=== PATIENT | female | born 1980 | race African-American/Black ===

== ENCOUNTER 2023-11-14 11:35 | Inpatient (IN) | payer BC, MEDICAID ==
[2023-11-14] VITALS (9 sets, daily range): BP systolic 102–148; BP diastolic 65–100; PULSE 97–130; RESP 18–20; TEMP 100.9; O2SAT 96–100
[~2023-11-14] VITALS: Ht 165.1 cm; Wt 76.6 kg
[2023-11-14] MEDS: ETOMIDATE (2MG/ML) 20ML VIAL IV ONE ×2 (11:51→12:05)
[2023-11-14] MEDS: MIDAZOLAM DRIP 50 mg/50mL 50 ML IV ONE (11:57)
[2023-11-14] MEDS: ROCURONIUM 10MG/ML 10ML VIAL IV ONE ×2 (12:03→13:29)
[2023-11-14] MEDS: MIDAZOLAM DRIP 50 mg/50mL 50 ML IV SCH (12:15)
[2023-11-14 13:31] LABS: Basophils # (auto) 0.1 10 ^3/uL (0-0.2); Eosinophils # (auto) 0.1 10 ^3/uL (0-0.8); Lymphocytes # (auto) 2.8 10 ^3/uL (0.4-5.4); Mean Corpuscular Hgb Conc. 35.1 g/dL (32.0-36.0); Monocytes # (auto) 0.4 10 ^3/uL (0-1.3); White Blood Cell 5.6 10^3/uL (4.4-10.8)
[2023-11-14 13:33] LABS: Basophils % (auto) 0.9 % (0.0-2.0); Eosinophils % (auto) 1.7 % (0.0-7.0); Hematocrit 39.7 % (36.0-46.0); Hemoglobin 13.9 g/dL (12.2-16.2); Lymphocytes % (auto) 50.3 % (10.0-50.0); Mean Corpuscular Hemoglobin 34.5 pg (28.0-32.0); Mean Corpuscular Volume 98.4 fL (80.0-100.0); Monocytes % (auto) 7.3 % (0.0-12.0); Neutrophils # (auto) 2.2 10 ^3/uL (1.6-8.6); Neutrophils % (auto) 39.8 % (37.0-80.0); Nucleated Red Blood Cells % 0.2 %; Platelet Count (auto) 288 10^3/uL (140-450); Red Blood Cells 4.04 10^6/uL (4.0-5.20); Red Cell Distribution Width 15.2 % (11.8-14.3)
[2023-11-14 13:40] LABS: Base Excess -4.7 mmol/L (-2.0-3.0)
[2023-11-14 13:41] LABS: Alanine Aminotransferase 55 U/L (7-40); Alkaline Phosphatase 107 U/L (46-116); Anion Gap 10 (5-15); Blood Urea Nitrogen 8 mg/dL (9-23); Calcium 9.9 mg/dL (8.7-10.4); Carbon Dioxide 23 mmol/L (20-30); Chloride 108 mmol/L (98-107); Glucose 85 mg/dL (74-106); Magnesium 1.8 mg/dL (1.6-2.6); Sodium 141 mmol/L (136-145)
[2023-11-14 13:42] LABS: Acetaminophen < 2.0 UG/ML (10.0-20.0); Albumin 4.5 g/dL (3.2-4.8); Aspartate Aminotransferase 81 U/L (13-40); BUN/Creatinine Ratio 12.1 (10.0-20.0); Bilirubin, Total 0.3 mg/dL (0.2-1.0); Total Protein 6.9 g/dL (5.7-8.2)
[2023-11-14 13:43] LABS: Salicylate < 3.0 mg/dL (2.8-20.0)
[2023-11-14 14:09] LABS: Urine Bacteria None Seen /hpf (None Seen)
[2023-11-14 14:29] LABS: Urine Blood Negative /uL (Negative); Urine Clarity Clear (Clear); Urine Protein, UAD Negative (Negative); Urine Specific Gravity 1.005 (1.001-1.035); Urine Urobilinogen Normal (Negative); Urine WBC <1 /hpf (0 - 5)
[2023-11-14 14:31] LABS: Urine Color Straw (Yellow)
[2023-11-14 14:37] LABS: Amphetamine Screen, Urine Neg (NEGATIVE); Benzodiazephine Screen, Urine Neg (NEGATIVE)
[2023-11-14 14:38] LABS: Barbiturate Scree,Urine Neg (NEGATIVE); Cannabinoid Screen, Urine Neg (NEGATIVE); Cocaine Screen, Urine Neg (NEGATIVE); Opiate Scree,Urine Neg (NEGATIVE); Phencyclidine Screen, Urine Neg (NEGATIVE)
[2023-11-14 16:19] LABS: Base Excess -4.3 mmol/L (-2.0-3.0)
[2023-11-14] MEDS ORDERED: NITROGLYCERIN 0.4 MG SL TAB SL PRN (18:15)
[2023-11-14] MEDS ORDERED: MORPHINE SULFATE INJ 2 MG/ml SYRG IV PRN (18:15)
[2023-11-14] MEDS ORDERED: MORPHINE SULFATE 4 MG/ML SYR/VIAL IV PRN (18:15)
[2023-11-14] MEDS: ACETAMINOPHEN 650 mg PER 20.3 mL UD GT ONE (19:06)
[2023-11-14] MEDS: SODIUM CHLORIDE 0.9% 1,000 ML IV SCH (20:06)
[2023-11-14] MEDS: PANTOPRAZOLE 40 MG/10 ML VIAL INJ IV ONE (20:06)
[2023-11-14] MEDS: fentaNYL Drip 2500mCg/250mlNS 250 ML IV SCH (20:22)
[2023-11-14] MEDS: IPRATROPIUM BROM 0.5 MG/2.5ML INH SOL NEB SCH (22:00)
[2023-11-14] MEDS: ALBUTEROL SULF 2.5 MG/0.5ML(0.5%) NEB SOLN NEB SCH (22:00)
[2023-11-15] VITALS (98 sets, daily range): BP systolic 83–155; BP diastolic 53–99; PULSE 79–125; RESP 17–22; TEMP 97.9–100.9; O2SAT 98–100
[2023-11-15] MEDS: PROPOFOL 100 ML IV SCH (02:15)
[2023-11-15] MEDS: PROPOFOL 100 ML IV ONE (02:21)
[2023-11-15 04:00] LABS: Basophils # (auto) 0 10 ^3/uL (0-0.2); Basophils % (auto) 0.2 % (0.0-2.0); Eosinophils # (auto) 0 10 ^3/uL (0-0.8); Hematocrit 38.7 % (36.0-46.0); Hemoglobin 13.2 g/dL (12.2-16.2); Lymphocytes # (auto) 0.9 10 ^3/uL (0.4-5.4); Mean Corpuscular Hemoglobin 33.3 pg (28.0-32.0); Mean Corpuscular Hgb Conc. 34.1 g/dL (32.0-36.0); Mean Corpuscular Volume 97.7 fL (80.0-100.0); Monocytes # (auto) 0.7 10 ^3/uL (0-1.3); Monocytes % (auto) 4.8 % (0.0-12.0); Platelet Count (auto) 265 10^3/uL (140-450); Red Blood Cells 3.96 10^6/uL (4.0-5.20); Red Cell Distribution Width 15.2 % (11.8-14.3); White Blood Cell 14.6 10^3/uL (4.4-10.8)
[2023-11-15 04:24] LABS: Alanine Aminotransferase 42 U/L (7-40); Albumin 4.3 g/dL (3.2-4.8); Alkaline Phosphatase 104 U/L (46-116); Anion Gap 10 (5-15); Aspartate Aminotransferase 36 U/L (13-40); BUN/Creatinine Ratio 6.8 (10.0-20.0); Blood Urea Nitrogen 6 mg/dL (9-23); Calcium 9.5 mg/dL (8.7-10.4); Carbon Dioxide 22 mmol/L (20-30); Chloride 106 mmol/L (98-107); Glucose 156 mg/dL (74-106); Potassium 4.2 mmol/L (3.5-5.1); Sodium 138 mmol/L (136-145)
[2023-11-15 04:25] LABS: Bilirubin, Total 0.7 mg/dL (0.2-1.0); Total Protein 6.8 g/dL (5.7-8.2)
[2023-11-15 07:15] LABS: Base Excess -3.6 mmol/L (-2.0-3.0)
[2023-11-15] MEDS: PANTOPRAZOLE 40 MG/10 ML VIAL INJ IV SCH (09:30)
[2023-11-15] MEDS: ENOXAPARIN SOD 40 MG/0.4 ML SYRINGE SC SCH (09:30)
[2023-11-15] MEDS: NOREPINEPHRINE 8 MG/250ML KIT 250 ML IV SCH (10:45)
[2023-11-15 11:27] LABS: Magnesium 1.5 mg/dL (1.6-2.6)
[2023-11-15 11:29] LABS: Phosphorus 4.5 mg/dL (2.4-5.1)
[2023-11-15] MEDS: MAGNESIUM SULFATE 1GM/100ML 100 ML IV SCH (13:08)
[2023-11-15] MEDS ORDERED: ACETAMINOPHEN 650 mg PER 20.3 mL UD GT PRN (14:15)
[2023-11-15] MEDS: IBUPROFEN 100MG/5ML ORAL SUSP 100 MG/5 ML UD GT PRN (15:41)
[2023-11-16] VITALS (104 sets, daily range): BP systolic 102–184; BP diastolic 57–130; PULSE 72–119; RESP 14–27; TEMP 96.4–101.1; O2SAT 10–100
[2023-11-16 07:02] LABS: Base Excess -2.6 mmol/L (-2.0-3.0)
[2023-11-16 08:58] LABS: Basophils # (auto) 0 10 ^3/uL (0-0.2); Basophils % (auto) 0.2 % (0.0-2.0); Eosinophils # (auto) 0 10 ^3/uL (0-0.8); Eosinophils % (auto) 0.5 % (0.0-7.0); Hematocrit 34.4 % (36.0-46.0); Hemoglobin 11.9 g/dL (12.2-16.2); Lymphocytes # (auto) 0.9 10 ^3/uL (0.4-5.4); Lymphocytes % (auto) 10.2 % (10.0-50.0); Mean Corpuscular Hemoglobin 33.6 pg (28.0-32.0); Mean Corpuscular Hgb Conc. 34.6 g/dL (32.0-36.0); Monocytes # (auto) 0.4 10 ^3/uL (0-1.3); Monocytes % (auto) 4.1 % (0.0-12.0); Neutrophils # (auto) 7.4 10 ^3/uL (1.6-8.6); Platelet Count (auto) 205 10^3/uL (140-450); Red Blood Cells 3.55 10^6/uL (4.0-5.20); White Blood Cell 8.7 10^3/uL (4.4-10.8)
[2023-11-16 09:06] LABS: Chloride 108 mmol/L (98-107); Potassium 3.1 mmol/L (3.5-5.1); Sodium 139 mmol/L (136-145)
[2023-11-16 09:07] LABS: Anion Gap 7 (5-15); Calcium 8.7 mg/dL (8.7-10.4); Carbon Dioxide 24 mmol/L (20-30)
[2023-11-16 09:12] LABS: BUN/Creatinine Ratio 8.3 (10.0-20.0); Blood Urea Nitrogen < 5 mg/dL (9-23); Glucose 161 mg/dL (74-106)
[2023-11-16] MEDS: LABETALOL HCL 20 MG/4 ML VL IV PRN (09:30)
[2023-11-16] MEDS: POTASSIUM CHL 20MEQ/100ML 100 ML IV ONE (10:30)
[2023-11-16] MEDS: POTASSIUM CHL 20MEQ/100ML 100 ML IV SCH (10:30)
[2023-11-16] MEDS: cloNIDine 0.2 mg/24hr 7DAY PATCH TD SCH (18:12)
[2023-11-17] VITALS (102 sets, daily range): BP systolic 85–143; BP diastolic 52–92; PULSE 77–126; RESP 15–21; TEMP 95–101.5; O2SAT 98–100
[2023-11-17 05:00] LABS: Alanine Aminotransferase 22 U/L (7-40); Albumin 3.5 g/dL (3.2-4.8); Alkaline Phosphatase 93 U/L (46-116); Anion Gap 9 (5-15); Aspartate Aminotransferase 15 U/L (13-40); Calcium 8.2 mg/dL (8.7-10.4); Carbon Dioxide 21 mmol/L (20-30); Chloride 109 mmol/L (98-107); Glucose 78 mg/dL (74-106); Magnesium 1.8 mg/dL (1.6-2.6); Potassium 3.7 mmol/L (3.5-5.1); Sodium 139 mmol/L (136-145)
[2023-11-17 05:01] LABS: Bilirubin, Total 0.5 mg/dL (0.2-1.0); Total Protein 5.9 g/dL (5.7-8.2)
[2023-11-17 05:02] LABS: BUN/Creatinine Ratio 9.6 (10.0-20.0); Blood Urea Nitrogen < 5 mg/dL (9-23)
[2023-11-17 05:06] LABS: Basophils # (auto) 0 10 ^3/uL (0-0.2); Basophils % (auto) 0.4 % (0.0-2.0); Eosinophils # (auto) 0.1 10 ^3/uL (0-0.8); Eosinophils % (auto) 1.7 % (0.0-7.0); Hematocrit 33.9 % (36.0-46.0); Hemoglobin 11.8 g/dL (12.2-16.2); Lymphocytes # (auto) 0.8 10 ^3/uL (0.4-5.4); Lymphocytes % (auto) 10.1 % (10.0-50.0); Mean Corpuscular Hemoglobin 33.8 pg (28.0-32.0); Mean Corpuscular Hgb Conc. 34.7 g/dL (32.0-36.0); Mean Corpuscular Volume 97.5 fL (80.0-100.0); Monocytes # (auto) 0.5 10 ^3/uL (0-1.3); Monocytes % (auto) 5.7 % (0.0-12.0); Neutrophils # (auto) 6.7 10 ^3/uL (1.6-8.6); Neutrophils % (auto) 82.1 % (37.0-80.0); Platelet Count (auto) 201 10^3/uL (140-450); Red Blood Cells 3.48 10^6/uL (4.0-5.20); White Blood Cell 8.2 10^3/uL (4.4-10.8)
[2023-11-17] MEDS ORDERED: LORazepam 2MG/ML-1ML VIAL IV SCH (09:15)
[2023-11-17] MEDS ORDERED: FOLIC ACID 1 MG in D5W 5% 50 ML INJ SCH (09:15)
[2023-11-17] MEDS ORDERED: MULTIPLE VITAMIN TAB PO SCH (10:00)
[2023-11-17] MEDS ORDERED: THIAMINE 100mg/ml INJ (200mg/2ml VIAL) IV SCH (10:00)
[2023-11-17] MEDS: SODIUM CHLORIDE 0.9% 1,000 ML IV ONE (10:14)
[2023-11-17] MEDS ORDERED: LORazepam 2MG/ML-1ML VIAL IV PRN (10:30)
[2023-11-17] MEDS: chlordiazePOXIDE HCL 25 MG CAP PO SCH (12:18)
[2023-11-17] MEDS: LORazepam 2MG/ML-1ML VIAL IV PRN (12:18)
[2023-11-17] MEDS: IOHEXOL 300 MG/ML 100ML BOTTLE IJ ONE (16:14)
[2023-11-17] MEDS: FOLIC ACID 1 MG, MULTIPLE VITAMIN 10 ML, MAGNESIUM SULF SDV 50% 8 MEQ, THIAMINE INJ 100... INJ SCH (17:59)
[2023-11-17 21:14] LABS: COVID19 ANTIGEN SOFIA FIA NEGATIVE (NEGATIVE)
[2023-11-18] VITALS (105 sets, daily range): BP systolic 82–131; BP diastolic 42–84; PULSE 83–127; RESP 15–30; TEMP 98.1–99.9; O2SAT 94–100
[2023-11-18 04:03] LABS: Basophils # (auto) 0 10 ^3/uL (0-0.2); Basophils % (auto) 0.2 % (0.0-2.0); Eosinophils # (auto) 0.1 10 ^3/uL (0-0.8); Eosinophils % (auto) 1.5 % (0.0-7.0); Hematocrit 31.8 % (36.0-46.0); Hemoglobin 10.9 g/dL (12.2-16.2); Lymphocytes # (auto) 0.5 10 ^3/uL (0.4-5.4); Lymphocytes % (auto) 7.2 % (10.0-50.0); Mean Corpuscular Hemoglobin 33.5 pg (28.0-32.0); Mean Corpuscular Hgb Conc. 34.4 g/dL (32.0-36.0); Mean Corpuscular Volume 97.3 fL (80.0-100.0); Monocytes # (auto) 0.5 10 ^3/uL (0-1.3); Monocytes % (auto) 6.7 % (0.0-12.0); Neutrophils # (auto) 6.5 10 ^3/uL (1.6-8.6); Neutrophils % (auto) 84.4 % (37.0-80.0); Platelet Count (auto) 219 10^3/uL (140-450); Red Blood Cells 3.27 10^6/uL (4.0-5.20); Red Cell Distribution Width 14.6 % (11.8-14.3); White Blood Cell 7.6 10^3/uL (4.4-10.8)
[2023-11-18 04:12] LABS: Alanine Aminotransferase 15 U/L (7-40); Albumin 3.3 g/dL (3.2-4.8); Alkaline Phosphatase 82 U/L (46-116); Anion Gap 10 (5-15); Aspartate Aminotransferase 11 U/L (13-40); Bilirubin, Total 0.5 mg/dL (0.2-1.0); Calcium 8.2 mg/dL (8.7-10.4); Carbon Dioxide 18 mmol/L (20-30); Chloride 107 mmol/L (98-107); Glucose 97 mg/dL (74-106); Potassium 3.3 mmol/L (3.5-5.1); Sodium 135 mmol/L (136-145); Total Protein 5.5 g/dL (5.7-8.2)
[2023-11-18 04:28] LABS: BUN/Creatinine Ratio 10.6 (10.0-20.0); Blood Urea Nitrogen < 5 mg/dL (9-23)
[2023-11-18] MEDS: POTASSIUM CHL 20MEQ/100ML 100 ML IV ONE ×2 (06:35→11:33)
[2023-11-18] MEDS: ROCURONIUM 10MG/ML 10ML VIAL IV ONE ×2 (08:30→11:31)
[2023-11-18 08:55] LABS: Base Excess -9.1 mmol/L (-2.0-3.0)
[2023-11-18] MEDS ORDERED: POTASSIUM CHL 20MEQ/100ML 100 ML IV SCH (09:15)
[2023-11-18 09:17] LABS: Magnesium 1.9 mg/dL (1.6-2.6)
[2023-11-18 09:19] LABS: Phosphorus 3.5 mg/dL (2.4-5.1)
[2023-11-18 16:27] LABS: Potassium 3.7 mmol/L (3.5-5.1)
[2023-11-18 16:36] LABS: Magnesium 1.8 mg/dL (1.6-2.6)
[2023-11-18] MEDS: PIPERACILLIN-TAZOB 3.375GM 100 ML IV SCH (21:19)
[2023-11-19] VITALS (107 sets, daily range): BP systolic 81–131; BP diastolic 40–80; PULSE 66–137; RESP 16–27; TEMP 97–101.5; O2SAT 97–100
[2023-11-19 04:47] LABS: Alanine Aminotransferase 15 U/L (7-40); Albumin 3.3 g/dL (3.2-4.8); Alkaline Phosphatase 83 U/L (46-116); Anion Gap 9 (5-15); Aspartate Aminotransferase 21 U/L (13-40); Bilirubin, Total 0.3 mg/dL (0.2-1.0); Calcium 8.7 mg/dL (8.7-10.4); Carbon Dioxide 21 mmol/L (20-30); Chloride 109 mmol/L (98-107); Glucose 117 mg/dL (74-106); Potassium 3.5 mmol/L (3.5-5.1); Sodium 139 mmol/L (136-145); Total Protein 5.5 g/dL (5.7-8.2)
[2023-11-19 04:48] LABS: BUN/Creatinine Ratio 9.3 (10.0-20.0); Blood Urea Nitrogen < 5 mg/dL (9-23)
[2023-11-19 04:51] LABS: INR 0.99 (0.9-1.15); Partial Thromboplastin Time 37.5 SEC (24.5-34.5); Prothrombin Time 10.5 sec (9.3-11.8)
[2023-11-19 07:36] LABS: Base Excess -4.9 mmol/L (-2.0-3.0)
[2023-11-19] MEDS: chlordiazePOXIDE HCL 25 MG CAP PO SCH (21:17)
[2023-11-20] VITALS (106 sets, daily range): BP systolic 98–177; BP diastolic 41–101; PULSE 93–138; RESP 17–29; TEMP 88.9–100.9; O2SAT 30–100
[2023-11-20 04:45] LABS: Basophils # (auto) 0 10 ^3/uL (0-0.2); Basophils % (auto) 0.4 % (0.0-2.0); Eosinophils # (auto) 0.1 10 ^3/uL (0-0.8); Eosinophils % (auto) 1.8 % (0.0-7.0); Hematocrit 33.7 % (36.0-46.0); Hemoglobin 11.6 g/dL (12.2-16.2); Lymphocytes % (auto) 14.7 % (10.0-50.0); Mean Corpuscular Hemoglobin 33.8 pg (28.0-32.0); Mean Corpuscular Hgb Conc. 34.6 g/dL (32.0-36.0); Mean Corpuscular Volume 97.6 fL (80.0-100.0); Monocytes % (auto) 13.5 % (0.0-12.0); Neutrophils # (auto) 4.9 10 ^3/uL (1.6-8.6); Neutrophils % (auto) 69.6 % (37.0-80.0); Platelet Count (auto) 270 10^3/uL (140-450); Red Blood Cells 3.45 10^6/uL (4.0-5.20); Red Cell Distribution Width 15.1 % (11.8-14.3)
[2023-11-20 04:49] LABS: INR 0.99 (0.9-1.15); Partial Thromboplastin Time 34.7 SEC (24.5-34.5); Prothrombin Time 10.5 sec (9.3-11.8)
[2023-11-20 04:59] LABS: Alanine Aminotransferase 17 U/L (7-40); Albumin 3.5 g/dL (3.2-4.8); Alkaline Phosphatase 89 U/L (46-116); Anion Gap 7 (5-15); Aspartate Aminotransferase 20 U/L (13-40); Calcium 8.9 mg/dL (8.7-10.4); Carbon Dioxide 23 mmol/L (20-31); Chloride 107 mmol/L (98-107); Glucose 108 mg/dL (74-106); Potassium 3.7 mmol/L (3.5-5.1); Sodium 137 mmol/L (136-145)
[2023-11-20 05:00] LABS: Bilirubin, Total 0.3 mg/dL (0.2-1.0); Total Protein 5.9 g/dL (5.7-8.2)
[2023-11-20 05:22] LABS: BUN/Creatinine Ratio 11.4 (10.0-20.0); Blood Urea Nitrogen < 5 mg/dL (9-23)
[2023-11-20 12:37] LABS: Base Excess -2.8 mmol/L (-2.0-3.0)
[2023-11-21] VITALS (103 sets, daily range): BP systolic 84–192; BP diastolic 52–127; PULSE 88–135; RESP 16–31; TEMP 97.7–100.8; O2SAT 97–100
[2023-11-21 04:55] LABS: Basophils # (auto) 0.1 10 ^3/uL (0-0.2); Basophils % (auto) 0.7 % (0.0-2.0); Eosinophils # (auto) 0.1 10 ^3/uL (0-0.8); Eosinophils % (auto) 1.4 % (0.0-7.0); Hematocrit 35.8 % (36.0-46.0); Hemoglobin 12.4 g/dL (12.2-16.2); Lymphocytes # (auto) 1.2 10 ^3/uL (0.4-5.4); Lymphocytes % (auto) 14.8 % (10.0-50.0); Mean Corpuscular Hemoglobin 33.5 pg (28.0-32.0); Mean Corpuscular Hgb Conc. 34.6 g/dL (32.0-36.0); Mean Corpuscular Volume 96.7 fL (80.0-100.0); Monocytes # (auto) 1.3 10 ^3/uL (0-1.3); Monocytes % (auto) 16.4 % (0.0-12.0); Neutrophils # (auto) 5.3 10 ^3/uL (1.6-8.6); Neutrophils % (auto) 66.7 % (37.0-80.0); Nucleated Red Blood Cells % 0.2 %; Platelet Count (auto) 298 10^3/uL (140-450); Red Blood Cells 3.71 10^6/uL (4.0-5.20); Red Cell Distribution Width 14.5 % (11.8-14.3); White Blood Cell 7.9 10^3/uL (4.4-10.8)
[2023-11-21 05:18] LABS: Alanine Aminotransferase 15 U/L (7-40); Albumin 3.7 g/dL (3.2-4.8); Alkaline Phosphatase 90 U/L (46-116); Anion Gap 10 (5-15); Aspartate Aminotransferase 25 U/L (13-40); Calcium 9.4 mg/dL (8.7-10.4); Carbon Dioxide 24 mmol/L (20-31); Chloride 105 mmol/L (98-107); Glucose 88 mg/dL (74-106); Magnesium 1.9 mg/dL (1.6-2.6); Potassium 4.2 mmol/L (3.5-5.1); Sodium 139 mmol/L (136-145)
[2023-11-21 05:19] LABS: Bilirubin, Total 0.2 mg/dL (0.2-1.0); Phosphorus 3.5 mg/dL (2.4-5.1); Total Protein 6.3 g/dL (5.7-8.2)
[2023-11-21 05:23] LABS: BUN/Creatinine Ratio 11.4 (10.0-20.0); Blood Urea Nitrogen < 5 mg/dL (9-23)
[2023-11-21 07:38] LABS: Base Excess -3.1 mmol/L (-2.0-3.0)
[2023-11-21] MEDS: LACTULOSE 20Gm/30ML SOLN PO SCH (22:08)
[2023-11-21] MEDS: DOCUSATE ORAL LIQUID 100 MG/10 ML UD GT SCH (22:08)
[2023-11-21] MEDS: SENNA 8.6 MG TAB PO SCH (22:08)
[2023-11-22] VITALS (112 sets, daily range): BP systolic 95–196; BP diastolic 56–122; PULSE 76–123; RESP 16–31; TEMP 97.2–100.9; O2SAT 97–100
[2023-11-22 05:02] LABS: Basophils # (auto) 0 10 ^3/uL (0-0.2); Basophils % (auto) 0.3 % (0.0-2.0); Eosinophils # (auto) 0.2 10 ^3/uL (0-0.8); Eosinophils % (auto) 2.7 % (0.0-7.0); Hematocrit 31.5 % (36.0-46.0); Hemoglobin 11.2 g/dL (12.2-16.2); Lymphocytes # (auto) 1.2 10 ^3/uL (0.4-5.4); Lymphocytes % (auto) 18.7 % (10.0-50.0); Mean Corpuscular Hemoglobin 33.6 pg (28.0-32.0); Mean Corpuscular Hgb Conc. 35.7 g/dL (32.0-36.0); Mean Corpuscular Volume 94.3 fL (80.0-100.0); Neutrophils % (auto) 62.3 % (37.0-80.0); Nucleated Red Blood Cells % 0.1 %; Platelet Count (auto) 320 10^3/uL (140-450); Red Blood Cells 3.34 10^6/uL (4.0-5.20); Red Cell Distribution Width 14.7 % (11.8-14.3); White Blood Cell 6.4 10^3/uL (4.4-10.8)
[2023-11-22 05:15] LABS: Anion Gap 8 (5-15); Calcium 9.1 mg/dL (8.7-10.4); Carbon Dioxide 26 mmol/L (20-31); Chloride 105 mmol/L (98-107); Potassium 3.1 mmol/L (3.5-5.1); Sodium 139 mmol/L (136-145)
[2023-11-22 05:21] LABS: Glucose 144 mg/dL (74-106)
[2023-11-22 05:22] LABS: Magnesium 1.8 mg/dL (1.6-2.6)
[2023-11-22 05:30] LABS: BUN/Creatinine Ratio 10.4 (10.0-20.0); Blood Urea Nitrogen < 5 mg/dL (9-23)
[2023-11-22] MEDS: PROPOFOL 100 ML IV SCH (07:00)
[2023-11-22] MEDS: POTASSIUM CHL 20MEQ/100ML 100 ML IV ONE ×2 (07:17→09:57)
[2023-11-22 07:48] LABS: Base Excess -3.4 mmol/L (-2.0-3.0)
[2023-11-22] MEDS: POTASSIUM CHL 20MEQ/100ML 100 ML IV SCH (09:55)
[2023-11-22 13:43] LABS: Base Excess 0.4 mmol/L (-2.0-3.0)
[2023-11-22] MEDS: EPINEPHrine HCL 0.5 ML NEB NEB ONE ×3 (14:45→15:45)
[2023-11-22] MEDS: methylPREDNISolone SOD SUCC 40 MG/ML VL ONE (14:48)
[2023-11-22] MEDS: EPINEPHrine HCL 0.5 ML NEB ONE ×3 (14:51→15:45)
[2023-11-22] MEDS: diphenhdrAMINE HCL 50 MG/1 ML VL IV ONE (15:05)
[2023-11-22] MEDS: FAMOTIDINE (10MG/ML) 2ML VL IV ONE (15:10)
[2023-11-22] MEDS: diphenhdrAMINE HCL 50 MG/1 ML VL ONE (15:10)
[2023-11-22] MEDS: ROCURONIUM 10MG/ML 10ML VIAL IV ONE ×2 (15:52→16:15)
[2023-11-22] MEDS: ETOMIDATE (2MG/ML) 20ML VIAL IV ONE ×2 (15:52→16:15)
[2023-11-22] MEDS: SUCCINYLCHOLINE CHLORIDE 20 MG/ML 10ML VIAL IV ONE (16:08)
[2023-11-22] MEDS: ALBUTEROL SULF 2.5 MG/0.5ML(0.5%) NEB SOLN NEB ONE (16:41)
[2023-11-22 21:07] LABS: Base Excess -3.2 mmol/L (-2.0-3.0)
[2023-11-22] MEDS ORDERED: methylPREDNISolone SOD SUCC 40 MG/ML VL IV SCH (22:00)
[2023-11-22] MEDS: methylPREDNISolone SOD SUCC 40 MG/ML VL IV SCH (22:43)
[2023-11-23] VITALS (103 sets, daily range): BP systolic 100–148; BP diastolic 59–88; PULSE 77–147; RESP 16–22; TEMP 97.9–99; O2SAT 96–100
[2023-11-23] MEDS: FAMOTIDINE (10MG/ML) 2ML VL IV SCH (00:12)
[2023-11-23] MEDS: diphenhdrAMINE HCL 50 MG/1 ML VL IV SCH (00:12)
[2023-11-23 04:34] LABS: Basophils # (auto) 0 10 ^3/uL (0-0.2); Eosinophils # (auto) 0 10 ^3/uL (0-0.8); Hematocrit 34.2 % (36.0-46.0); Hemoglobin 11.8 g/dL (12.2-16.2); Lymphocytes # (auto) 0.7 10 ^3/uL (0.4-5.4); Lymphocytes % (auto) 7.3 % (10.0-50.0); Mean Corpuscular Hgb Conc. 34.6 g/dL (32.0-36.0); Mean Corpuscular Volume 95.5 fL (80.0-100.0); Monocytes # (auto) 0.2 10 ^3/uL (0-1.3); Monocytes % (auto) 2.3 % (0.0-12.0); Neutrophils # (auto) 8.6 10 ^3/uL (1.6-8.6); Neutrophils % (auto) 90.4 % (37.0-80.0); Platelet Count (auto) 377 10^3/uL (140-450); Red Blood Cells 3.58 10^6/uL (4.0-5.20); Red Cell Distribution Width 15.3 % (11.8-14.3); White Blood Cell 9.5 10^3/uL (4.4-10.8)
[2023-11-23 04:37] LABS: Chloride 106 mmol/L (98-107); Potassium 3.2 mmol/L (3.5-5.1); Sodium 137 mmol/L (136-145)
[2023-11-23 04:38] LABS: Anion Gap 7 (5-15); Calcium 9.2 mg/dL (8.7-10.4); Carbon Dioxide 24 mmol/L (20-31)
[2023-11-23 04:43] LABS: Glucose 211 mg/dL (74-106)
[2023-11-23 04:57] LABS: BUN/Creatinine Ratio 9.3 (10.0-20.0); Blood Urea Nitrogen < 5 mg/dL (9-23)
[2023-11-23] MEDS: POTASSIUM CHL 20MEQ/100ML 100 ML IV SCH (05:30)
[2023-11-23 06:43] LABS: Base Excess -2.5 mmol/L (-2.0-3.0)
[2023-11-23] MEDS: diphenhdrAMINE HCL 50 MG/1 ML VL IV ONE (12:42)
[2023-11-24] VITALS (110 sets, daily range): BP systolic 90–170; BP diastolic 52–108; PULSE 68–139; RESP 16–37; TEMP 97.7–100.9; O2SAT 86–100
[2023-11-24 04:09] LABS: Basophils # (auto) 0.1 10 ^3/uL (0-0.2); Basophils % (auto) 0.4 % (0.0-2.0); Eosinophils # (auto) 0 10 ^3/uL (0-0.8); Hematocrit 32.7 % (36.0-46.0); Hemoglobin 11.3 g/dL (12.2-16.2); Lymphocytes # (auto) 0.6 10 ^3/uL (0.4-5.4); Lymphocytes % (auto) 3.8 % (10.0-50.0); Mean Corpuscular Hemoglobin 33.1 pg (28.0-32.0); Mean Corpuscular Hgb Conc. 34.6 g/dL (32.0-36.0); Mean Corpuscular Volume 95.7 fL (80.0-100.0); Monocytes # (auto) 1.1 10 ^3/uL (0-1.3); Monocytes % (auto) 6.7 % (0.0-12.0); Neutrophils % (auto) 89.1 % (37.0-80.0); Nucleated Red Blood Cells % 0.2 %; Platelet Count (auto) 423 10^3/uL (140-450); Red Blood Cells 3.42 10^6/uL (4.0-5.20); Red Cell Distribution Width 15.1 % (11.8-14.3); White Blood Cell 15.7 10^3/uL (4.4-10.8)
[2023-11-24 04:18] LABS: Alanine Aminotransferase 14 U/L (7-40); Albumin 3.9 g/dL (3.2-4.8); Alkaline Phosphatase 77 U/L (46-116); Anion Gap 7 (5-15); Aspartate Aminotransferase 13 U/L (13-40); Bilirubin, Total < 0.2 mg/dL (0.2-1.0); Calcium 9.4 mg/dL (8.7-10.4); Carbon Dioxide 24 mmol/L (20-31); Chloride 105 mmol/L (98-107); Glucose 257 mg/dL (74-106); Potassium 3.4 mmol/L (3.5-5.1); Sodium 136 mmol/L (136-145); Total Protein 6.6 g/dL (5.7-8.2)
[2023-11-24 04:21] LABS: BUN/Creatinine Ratio 7.7 (10.0-20.0); Blood Urea Nitrogen < 5 mg/dL (9-23)
[2023-11-24 06:56] LABS: Base Excess -2.5 mmol/L (-2.0-3.0)
[2023-11-24] MEDS: IBUPROFEN 100MG/5ML ORAL SUSP 100 MG/5 ML UD ONE (16:53)
[2023-11-24] MEDS: POTASSIUM CHL 20MEQ/100ML 200 ML IV ONE (18:13)
[2023-11-24] MEDS: POTASSIUM CHL 20MEQ/100ML 100 ML IV SCH (18:45)
[2023-11-25] VITALS (110 sets, daily range): BP systolic 111–182; BP diastolic 67–106; PULSE 68–113; RESP 14–37; TEMP 95.4–100.9; O2SAT 83–100
[2023-11-25 06:46] LABS: Base Excess -2.9 mmol/L (-2.0-3.0)
[2023-11-25 12:33] LABS: Base Excess 0.9 mmol/L (-2.0-3.0)
[2023-11-25] MEDS: DexAMETHasone SOD PHOS 10MG/1ML VIAL INJ IV ONE (12:55)
[2023-11-25] MEDS: DexAMETHasone SOD PHOS 10MG/1ML VIAL INJ ONE (13:06)
[2023-11-25] MEDS ORDERED: AMPICILLIN & SULBACTAM SODIUM 3 GM in SODIUM CHL 0.9% 100 ML IV SCH (15:15)
[2023-11-25] MEDS: ceFAZolin 2 GM/D5W50ml 50 ML IV SCH (22:30)
[2023-11-26] VITALS (106 sets, daily range): BP systolic 117–176; BP diastolic 55–125; PULSE 66–122; RESP 16–55; TEMP 99.1–101.1; O2SAT 92–100
[2023-11-26] MEDS: hydrALAZINE HCL 20 MG/ML VL IV PRN (03:06)
[2023-11-26 04:38] LABS: Basophils # (auto) 0 10 ^3/uL (0-0.2); Basophils % (auto) 0.2 % (0.0-2.0); Eosinophils # (auto) 0 10 ^3/uL (0-0.8); Hematocrit 30.8 % (36.0-46.0); Hemoglobin 10.7 g/dL (12.2-16.2); Lymphocytes # (auto) 1.1 10 ^3/uL (0.4-5.4); Lymphocytes % (auto) 5.3 % (10.0-50.0); Mean Corpuscular Hemoglobin 32.9 pg (28.0-32.0); Mean Corpuscular Hgb Conc. 34.8 g/dL (32.0-36.0); Mean Corpuscular Volume 94.6 fL (80.0-100.0); Monocytes # (auto) 0.8 10 ^3/uL (0-1.3); Monocytes % (auto) 3.6 % (0.0-12.0); Neutrophils # (auto) 19.2 10 ^3/uL (1.6-8.6); Neutrophils % (auto) 90.9 % (37.0-80.0); Platelet Count (auto) 441 10^3/uL (140-450); Red Blood Cells 3.26 10^6/uL (4.0-5.20); Red Cell Distribution Width 14.7 % (11.8-14.3); White Blood Cell 21.1 10^3/uL (4.4-10.8)
[2023-11-26 04:51] LABS: Alanine Aminotransferase 27 U/L (7-40); Albumin 3.8 g/dL (3.2-4.8); Alkaline Phosphatase 73 U/L (46-116); Anion Gap 7 (5-15); Aspartate Aminotransferase 31 U/L (13-40); Calcium 9.2 mg/dL (8.7-10.4); Carbon Dioxide 28 mmol/L (20-31); Chloride 110 mmol/L (98-107); Glucose 184 mg/dL (74-106); Potassium 3.2 mmol/L (3.5-5.1)
[2023-11-26 04:52] LABS: Bilirubin, Total 0.3 mg/dL (0.2-1.0); Total Protein 6.3 g/dL (5.7-8.2)
[2023-11-26 04:53] LABS: BUN/Creatinine Ratio 9.8 (10.0-20.0); Blood Urea Nitrogen < 5 mg/dL (9-23); Sodium 145 mmol/L (136-145)
[2023-11-26] MEDS ORDERED: POTASSIUM CHL 20MEQ/100ML 100 ML IV ONE (05:45)
[2023-11-26 06:10] LABS: Base Excess 4.5 mmol/L (-2.0-3.0)
[2023-11-26] MEDS: POTASSIUM CHL 20MEQ/100ML 100 ML IV SCH (06:23)
[2023-11-26] MEDS: FUROSEMIDE 40 MG/4 ML VIAL IV ONE (06:23)
[2023-11-26 17:06] LABS: Urine Bacteria None Seen /hpf (None Seen)
[2023-11-26 17:41] LABS: Urine Blood 2+ /uL (Negative); Urine Clarity Turbid (Clear); Urine Color Yellow (Yellow); Urine Mucus FEW (None Seen); Urine Protein, UAD 1+ (Negative); Urine Specific Gravity 1.035 (1.001-1.035); Urine Urobilinogen Normal (Negative); Urine WBC 44 /hpf (0 - 5)
[2023-11-26] MEDS: QUEtiapine FUMARATE 25 MG TAB PO SCH (18:19)
[2023-11-26] MEDS: POTASSIUM CHLORIDE 60 MEQ, LIDOCAINE 1% (LOCAL ANESTH.) 6 ML in SODIUM CHL 0.9% 500 ML IV ONE (18:59)
[2023-11-27] VITALS (90 sets, daily range): BP systolic 125–180; BP diastolic 62–127; PULSE 77–133; RESP 14–48; TEMP 99.1–101.3; O2SAT 93–99
[2023-11-27 04:05] LABS: Basophils # (auto) 0 10 ^3/uL (0-0.2); Basophils % (auto) 0.2 % (0.0-2.0); Eosinophils # (auto) 0 10 ^3/uL (0-0.8); Hematocrit 29.8 % (36.0-46.0); Hemoglobin 10.3 g/dL (12.2-16.2); Lymphocytes # (auto) 0.9 10 ^3/uL (0.4-5.4); Lymphocytes % (auto) 6.1 % (10.0-50.0); Mean Corpuscular Hgb Conc. 34.7 g/dL (32.0-36.0); Monocytes # (auto) 0.5 10 ^3/uL (0-1.3); Monocytes % (auto) 3.3 % (0.0-12.0); Neutrophils # (auto) 13.1 10 ^3/uL (1.6-8.6); Neutrophils % (auto) 90.4 % (37.0-80.0); Nucleated Red Blood Cells % 0.1 %; Platelet Count (auto) 424 10^3/uL (140-450); Red Blood Cells 3.13 10^6/uL (4.0-5.20); Red Cell Distribution Width 15.6 % (11.8-14.3); White Blood Cell 14.5 10^3/uL (4.4-10.8)
[2023-11-27 04:27] LABS: Alanine Aminotransferase 65 U/L (7-40); Albumin 3.8 g/dL (3.2-4.8); Alkaline Phosphatase 76 U/L (46-116); Anion Gap 9 (5-15); Aspartate Aminotransferase 59 U/L (13-40); BUN/Creatinine Ratio 15.4 (10.0-20.0); Bilirubin, Total 0.3 mg/dL (0.2-1.0); Blood Urea Nitrogen 8 mg/dL (9-23); Carbon Dioxide 27 mmol/L (20-31); Chloride 109 mmol/L (98-107); Glucose 199 mg/dL (74-106); Potassium 3.1 mmol/L (3.5-5.1); Sodium 145 mmol/L (136-145); Total Protein 6.2 g/dL (5.7-8.2)
[2023-11-27] MEDS: POTASSIUM CHL 20MEQ/100ML 100 ML IV ONE ×2 (06:21→22:08)
[2023-11-27 06:33] LABS: Base Excess 3.4 mmol/L (-2.0-3.0)
[2023-11-27] MEDS: POTASSIUM EFFERVESENT TAB 25 MEQ GT ONE (22:07)
[2023-11-27] MEDS: methylPREDNISolone SOD SUCC 40 MG/ML VL IV SCH (22:09)
[2023-11-28] VITALS (24 sets, daily range): BP systolic 108–175; BP diastolic 61–126; PULSE 58–121; RESP 15–33; TEMP 98.6–100.6; O2SAT 94–100
[2023-11-28 03:50] LABS: Basophils # (auto) 0 10 ^3/uL (0-0.2); Eosinophils # (auto) 0 10 ^3/uL (0-0.8); Hemoglobin 10.4 g/dL (12.2-16.2); Lymphocytes # (auto) 0.9 10 ^3/uL (0.4-5.4); Mean Corpuscular Volume 95.3 fL (80.0-100.0); Monocytes # (auto) 0.4 10 ^3/uL (0-1.3)
[2023-11-28 03:52] LABS: Basophils % (auto) 0.2 % (0.0-2.0); Hematocrit 30.1 % (36.0-46.0); Lymphocytes % (auto) 6.1 % (10.0-50.0); Mean Corpuscular Hgb Conc. 34.6 g/dL (32.0-36.0); Monocytes % (auto) 2.9 % (0.0-12.0); Neutrophils # (auto) 12.8 10 ^3/uL (1.6-8.6); Neutrophils % (auto) 90.8 % (37.0-80.0); Nucleated Red Blood Cells % 0.2 %; Platelet Count (auto) 460 10^3/uL (140-450); Red Blood Cells 3.15 10^6/uL (4.0-5.20); Red Cell Distribution Width 14.9 % (11.8-14.3); White Blood Cell 14.1 10^3/uL (4.4-10.8)
[2023-11-28 03:59] LABS: Chloride 109 mmol/L (98-107); Potassium 3.4 mmol/L (3.5-5.1); Sodium 142 mmol/L (136-145)
[2023-11-28 04:00] LABS: Anion Gap 8 (5-15); Carbon Dioxide 25 mmol/L (20-31)
[2023-11-28 04:05] LABS: BUN/Creatinine Ratio 19.1 (10.0-20.0); Blood Urea Nitrogen 9 mg/dL (9-23); Glucose 178 mg/dL (74-106)
[2023-11-28] MEDS: ALBUTEROL SULF 2.5 MG/0.5ML(0.5%) NEB SOLN NEB SCH (17:57)
[2023-11-28] MEDS: IPRATROPIUM BROM 0.5 MG/2.5ML INH SOL NEB SCH (17:57)
[2023-11-28] MEDS: QUEtiapine FUMARATE 25 MG TAB PO SCH (21:32)
[2023-11-29] VITALS (12 sets, daily range): BP systolic 148–161; BP diastolic 70–91; PULSE 67–124; RESP 14–20; TEMP 97.3–100; O2SAT 96–100
[2023-11-29] MEDS: FAMOTIDINE (10MG/ML) 2ML VL IV SCH (02:05)
[2023-11-29] MEDS: chlordiazePOXIDE HCL 25 MG CAP PO ONE (09:31)
[2023-11-29] MEDS: methylPREDNISolone SOD SUCC 40 MG/ML VL IV SCH (09:32)
[2023-11-29] MEDS: LACTULOSE 20Gm/30ML SOLN PO SCH (09:33)
[2023-11-30] VITALS (12 sets, daily range): BP systolic 132–173; BP diastolic 80–92; PULSE 61–121; RESP 18–20; TEMP 98–99.1; O2SAT 95–100
[2023-11-30] MEDS: IBUPROFEN 600 MG TAB PO PRN (02:37)
[2023-11-30 07:05] LABS: Basophils # (auto) 0 10 ^3/uL (0-0.2); Hemoglobin 10.5 g/dL (12.2-16.2); Monocytes # (auto) 0.6 10 ^3/uL (0-1.3); Neutrophils # (auto) 6.2 10 ^3/uL (1.6-8.6); Nucleated Red Blood Cells % 0.1 %
[2023-11-30 07:08] LABS: Basophils % (auto) 0.3 % (0.0-2.0); Eosinophils # (auto) 0.1 10 ^3/uL (0-0.8); Eosinophils % (auto) 1.4 % (0.0-7.0); Hematocrit 30.5 % (36.0-46.0); Lymphocytes % (auto) 22.6 % (10.0-50.0); Mean Corpuscular Hemoglobin 32.7 pg (28.0-32.0); Mean Corpuscular Hgb Conc. 34.5 g/dL (32.0-36.0); Mean Corpuscular Volume 94.7 fL (80.0-100.0); Monocytes % (auto) 6.3 % (0.0-12.0); Neutrophils % (auto) 69.4 % (37.0-80.0); Platelet Count (auto) 483 10^3/uL (140-450); Red Blood Cells 3.23 10^6/uL (4.0-5.20); Red Cell Distribution Width 14.7 % (11.8-14.3)
[2023-11-30 07:32] LABS: Alanine Aminotransferase 41 U/L (7-40); Albumin 3.6 g/dL (3.2-4.8); Alkaline Phosphatase 70 U/L (46-116); Anion Gap 9 (5-15); Aspartate Aminotransferase 31 U/L (13-40); BUN/Creatinine Ratio 11.8 (10.0-20.0); Bilirubin, Total 0.4 mg/dL (0.2-1.0); Blood Urea Nitrogen 6 mg/dL (9-23); Calcium 9.1 mg/dL (8.7-10.4); Carbon Dioxide 26 mmol/L (20-31); Chloride 105 mmol/L (98-107); Glucose 113 mg/dL (74-106); Magnesium 1.7 mg/dL (1.6-2.6); Potassium 2.7 mmol/L (3.5-5.1); Sodium 140 mmol/L (136-145); Total Protein 5.8 g/dL (5.7-8.2)
[2023-11-30] MEDS ORDERED: SERTRALINE HCL 50 MG TAB PO PRN (11:00)
[2023-11-30] MEDS: SERTRALINE HCL 50 MG TAB PO SCH (18:11)
[2023-11-30] MEDS ORDERED: traZODone HCL 50 MG TAB PO PRN (22:00)
[2023-11-30] MEDS ORDERED: traZODone HCL 50 MG TAB PO SCH (22:00)
[2023-12-01] VITALS (10 sets, daily range): BP systolic 110–146; BP diastolic 61–83; PULSE 67–108; RESP 18–20; TEMP 97.1–98.7; O2SAT 97–100
[2023-12-01] MEDS: POTASSIUM CHL 20 Meq TABLET PO ONE (12:34)
[2023-12-01] MEDS: MAGNESIUM SULFATE 1GM/100ML 100 ML IV SCH (12:34)
[2023-12-01] MEDS: POTASSIUM CHLORIDE 40 MEQ, LIDOCAINE 1% (LOCAL ANESTH.) 4 ML in SODIUM CHL 0.9% 250 ML IV ONE (14:40)
[2023-12-02 01:00] VITALS: BP 133/86; PULSE 113; RESP 20; TEMP 98.2; O2SAT 99
[2023-12-02 04:59] VITALS: BP 135/90; PULSE 116; RESP 22; TEMP 98; O2SAT 100
[2023-12-02 08:00] VITALS: PULSE 96
[2023-12-02 09:00] VITALS: BP 150/91; PULSE 90; RESP 16; TEMP 97.8; O2SAT 97
[2023-12-02 10:00] VITALS: O2SAT 98
[2023-12-02] MEDS ORDERED: SERT50TA PO (15:04)
[2023-12-02] MEDS ORDERED: CLON0.1T PO (15:04)
[2023-12-02] MEDS ORDERED: TRAZ-227 PO (15:04)
[2023-12-02] MEDS ORDERED: PANT40TA57 PO (15:05)
[2023-12-02 17:43] VITALS: BP 142/71; PULSE 80; RESP 19; TEMP 98.9; O2SAT 96
== END 2023-12-02 18:25 | disposition home health service (06) | DRG 917 ==
LOC: EDBD 11:35 → ER 11:35 → OVERFLOW 18:13 → ICU WEST 11-15 02:49 → WEST WING 11-28 06:20 → TELE-WESTW 11-28 23:44
PROVIDERS: ADMIT Nurse Practitioner Family; ATTEND Internal Medicine
PROC: 5A1955Z Respiratory Ventilation, Greater than 96 Consecutive Hours (ICD-10-PCS; principal; 2023-11-14)
PROC: 0BH17EZ Insertion of Endotracheal Airway into Trachea, Via Natural or Artificial Opening (ICD-10-PCS; 2023-11-14)
PROC: 02HV33Z Insertion of Infusion Device into Superior Vena Cava, Percutaneous Approach (ICD-10-PCS; 2023-11-14)
PROC: 0B9D8ZX Drainage of Right Middle Lung Lobe, Via Natural or Artificial Opening Endoscopic, Diagnostic (ICD-10-PCS; 2023-11-18)
PROC: 5A09357 Assistance with Respiratory Ventilation, Less than 24 Consecutive Hours, Continuous Positive Airway Pressure (ICD-10-PCS; 2023-11-22)
PROC: 5A1945Z Respiratory Ventilation, 24-96 Consecutive Hours (ICD-10-PCS; 2023-11-22)
PROC: 0BH17EZ Insertion of Endotracheal Airway into Trachea, Via Natural or Artificial Opening (ICD-10-PCS; 2023-11-22)
DX: T50.991A Poisoning by other drugs, medicaments and biological substances, accidental (unintentional), initial encounter (principal); G92.8 Other toxic encephalopathy; J15.211 Pneumonia due to Methicillin susceptible Staphylococcus aureus; J96.01 Acute respiratory failure with hypoxia; J69.0 Pneumonitis due to inhalation of food and vomit; J15.69 Pneumonia due to other Gram-negative bacteria; J15.4 Pneumonia due to other streptococci; E87.20 Acidosis, unspecified; I16.1 Hypertensive emergency; J98.11 Atelectasis; Z99.11 Dependence on respirator [ventilator] status; G93.1 Anoxic brain damage, not elsewhere classified; N39.0 Urinary tract infection, site not specified; Z20.822 Contact with and (suspected) exposure to COVID-19; E87.6 Hypokalemia; E83.42 Hypomagnesemia; Y95 Nosocomial condition; F17.210 Nicotine dependence, cigarettes, uncomplicated; F41.9 Anxiety disorder, unspecified; G47.00 Insomnia, unspecified; Y92.89 Other specified places as the place of occurrence of the external cause; Z79.899 Other long term (current) drug therapy; Z83.3 Family history of diabetes mellitus; Z82.49 Family history of ischemic heart disease and other diseases of the circulatory system
CPT/HCPCS: 31500; 31624; 31720; 36415; 36556; 36600; 70450; 70491; 71045; 74018; 80048; 80053; 80307; 80320; 80329; 81001; 81025; 82140; 82805; 83605; 83735; 84100; 84132; 84484; 84702; 85025; 85610; 85730; 87040; 87045; 87070; 87077; 87081; 87086; 87088; 87186; 87205; 87426; 87427; 92610; 93005; 94002; 94003; 94640; 94660; 97110; 97116; 97163; 97530; 99291; G0378; J0330; J1100; J2003; J2470; J2543; J2704; J3480; J3490; J7060

== ENCOUNTER 2023-12-24 17:15 | Emergency (ER) | payer BC, MEDICAID ==
[~2023-12-24] VITALS: Ht 157.5 cm; Wt 57.2 kg
[~2023-12-24 17:15] MED LIST: CLON0.1T PO; PANT40TA57 PO; SERT50TA PO; TRAZ-227 PO
[2023-12-24 17:45] LABS: Basophils # (auto) 0 10 ^3/uL (0-0.2); Basophils % (auto) 0.7 % (0.0-2.0); Eosinophils # (auto) 0 10 ^3/uL (0-0.8); Eosinophils % (auto) 0.9 % (0.0-7.0); Hematocrit 39.9 % (36.0-46.0); Hemoglobin 13.6 g/dL (12.2-16.2); Lymphocytes # (auto) 1.3 10 ^3/uL (0.4-5.4); Lymphocytes % (auto) 38.2 % (10.0-50.0); Mean Corpuscular Hemoglobin 31.8 pg (28.0-32.0); Mean Corpuscular Hgb Conc. 34.1 g/dL (32.0-36.0); Mean Corpuscular Volume 93.2 fL (80.0-100.0); Monocytes # (auto) 0.4 10 ^3/uL (0-1.3); Monocytes % (auto) 12.3 % (0.0-12.0); Neutrophils # (auto) 1.7 10 ^3/uL (1.6-8.6); Neutrophils % (auto) 47.9 % (37.0-80.0); Nucleated Red Blood Cells % 0.3 %; Platelet Count (auto) 234 10^3/uL (140-450); Red Blood Cells 4.28 10^6/uL (4.0-5.20); Red Cell Distribution Width 14.8 % (11.8-14.3); White Blood Cell 3.5 10^3/uL (4.4-10.8)
[2023-12-24] MEDS: LORazepam 2MG/ML-1ML VIAL IV ONE (17:52)
[2023-12-24] MEDS: SODIUM CHLORIDE 0.9% 1,000 ML IV ONE (17:54)
[2023-12-24 17:57] VITALS: BP 126/75; PULSE 110; RESP 17; TEMP 97.5; O2SAT 97
[2023-12-24 18:03] LABS: Chloride 88 mmol/L (98-107); Potassium 4.1 mmol/L (3.5-5.1); Sodium 124 mmol/L (136-145)
[2023-12-24 18:05] LABS: Anion Gap 16 (5-15); Calcium 9.9 mg/dL (8.7-10.4); Carbon Dioxide 20 mmol/L (20-31)
[2023-12-24 18:10] LABS: Glucose 126 mg/dL (74-106)
[2023-12-24 18:39] LABS: BUN/Creatinine Ratio 6.3 (10.0-20.0); Blood Urea Nitrogen < 5 mg/dL (9-23)
[2023-12-24 18:40] LABS: Blood Alcohol < 3.0 mg/dL (<10)
[2023-12-24] MEDS ORDERED: CHL10C PO (19:16)
[2023-12-24] MEDS ORDERED: ZOFR4T PO (19:17)
== END 2023-12-24 19:42 | disposition home or self-care (01) ==
LOC: EDBD 17:15 → ER 17:18
DX: F10.139 Alcohol abuse with withdrawal, unspecified (principal); I10 Essential (primary) hypertension; F17.210 Nicotine dependence, cigarettes, uncomplicated; Z98.890 Other specified postprocedural states; Z79.899 Other long term (current) drug therapy; Y90.0 Blood alcohol level of less than 20 mg/100 ml
CPT/HCPCS: 36415; 80048; 80320; 85025; 96361; 96374; 99283; J2060; J7030